=== PATIENT | male | born 1990 | race Caucasian/White ===

== ENCOUNTER 2020-02-06 15:29 | Emergency (ER) | payer SELFPAY ==
[2020-02-06 15:52] VITALS: BP 154/98; PULSE 121; TEMP 99.5
[2020-02-06] MEDS ORDERED: ACETAMINOPHEN 325 MG TABLET (FP) PO ONE (15:55)
[2020-02-06] MEDS ORDERED: ONDANSETRON *ODT* 4 MG TABLET SL ONE (15:55)
--- NOTE | 2020-02-06 15:55 | PDOC ---
Rapid Medical Evaluation Medical Evaluation: Allergies Allergy/AdvReac Type Severity Reaction Status Date / Time No Known Allergies Allergy Verified 12/13/12 12:01 02/06/20 15:48 The patient is a 29 y/o M who presents to the ER for fever and vomiting for 2 days. Denies difficulty breathing or shortness of breath. States he doesn't want to eat or drink and if he does he vomits right after. Also admits to diarrhea. Exam: abdomen SNTNR. No focal tenderness. Lungs CTAB, (-) w/r/r A/P: vomiting No cough or other URI symptoms Tachy to 112, otherwise VSS Abdomen benign. His children also have fever at this time. Likely a stomach virus Zofran given in the ED, DC home Discharge Disposition - Diagnosis Vomiting Qualifiers: Vomiting type: unspecified Vomiting Intractability: non-intractable Nausea p resence: without nausea Qualified Code(s): R11.11 - Vomiting without nausea - Discharge Dispostion Disposition: HOME Condition at time of disposition: Stable Decision to Admit order: No - Ref[place] [facility] [place] [facility] [place] Group] - Patient Instructions Printed Discharge Instructions: DI for Vomiting -- Adult Additional Instructions: You were seen for your vomiting today It is most likely a stomach virus Please take the zofran every 8 hours as needed for nausea Eat a bland diet Take tylenol 650 every 4 hours as needed for vomiting Return to the ER for any new or worsening symptoms Te vieron por tus vmitos hoy. Lo ms probable es que sea un virus estomacal Por favor, tome el zofran cada 8 horas segn sea necesario para las nuseas [place] tosha dieta blanda [place]raw tylenol 650 cada 4 horas segn sea necesario para vomitar Regreso a Urgencias para cualquier sntoma nuevo o que empeore - Post Discharge Activity
== END 2020-02-06 16:21 | disposition home or self-care (01) ==
LOC: JER 15:29
DX: R11.10 Vomiting, unspecified (principal)
CPT/HCPCS: 99283-25; Q0162